=== PATIENT | female | born 1995 | race Caucasian/White ===

== ENCOUNTER 2016-11-25 19:24 | Emergency (ER) | payer BC ==
[2016-11-25 20:30] VITALS: BP 120/71
[2016-11-25] MEDS ORDERED: Ondansetron INJ* 2 MG/ML VIAL IV ONE (20:33)
[2016-11-25] MEDS ORDERED: NS 0.9% 1000 ML* 1,000 ML IV ONE ×2 (20:33→21:23)
--- NOTE | 2016-11-25 21:48 | UC ---
Abdominal Pain Female HPI - HPI Summary HPI Summary: Vomiting, diarrhea, weakness, malaise for 7 days. She hasn't had any vomiting or diarrhea for past 24 hrs, but still feels very washed out and weak. Chills but no measured fevers. Mild ST in AM. No cough or runny nose. 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 No bloody stools. Able to drink some protein shakes today. At [place], many contacts with GI bug. - History of Current Complaint Chief Complaint: UCGeneralIllness Stated Complaint: VOMITING Time Seen by Provider: 11/25/16 20:32 Hx Obtained From: Patient Hx Last Menstrual Period: 11/19/16 Onset/Duration: Gradual Onset, Lasting Weeks - 1 Timing: Constant Severity Initially: Moderate Severity Currently: Mild Location: Diffuse Character: Cramping, Dull Aggravating Factor(s): Food Alleviating Factor(s): Nothing Associated Signs and Symptoms: Positive: Dizzy, Decreased Appetite, Nausea, Vomiting - none today, Diarrhea - none today. Negative: Fever, Cough, Chest Pain, Constipation, Blood in Stool, Urinary Symptoms, Vaginal Bleeding, Vaginal Discharge - Risk Factors Ectopic Risk Factor: Negative Ovarian Torsion Risk Factor: Negative Allergies/Adverse Reactions: Allergies Allergy/AdvReac Type Severity Reaction Status Date / Time No Known Allergies Allergy Verified 11/25/16 20:30 PMH/Surg Hx/FS Hx/Imm Hx Previously Healthy: Yes Endocrine History Of: Denies: Diabetes, Thyroid Disease, Hyperthyroidism, Hypothyroidism, Dyslipidemia Cardiovascular History Of: Denies: Cardiac Disorders, Hypertension, Pacemaker/ICD, Myocardial Infarction , Congestive Heart Failure, Atrial Fibrillation, Deep Vein Thrombosis, Bleeding Disorders Respiratory History Of: Denies: COPD, Asthma, Bronchitis, Pneumonia, Pulmonary Embolism GI/ History Of: Denies: Gastroesophageal Reflux, Ulcer, Gastrointestinal Bleed, Gall Bladder Disease, Kidney Stones, Diverticulitis, Renal Disease, Urosepsis Neurological History Of: Denies: TIA, CVA, Dementia, Seizures, Migraine Psychological History Of: Denies: Anxiety, Depression, Bipolar Disorder, Schizophrenia, Post Traumatic Stress Disorder Cancer History Of: Denies: Lung Cancer, Colorectal Cancer, Breast Cancer, Prostate Cancer, Cervical Cancer Other History Of: Negative For: HIV, Hepatitis B, Hepatitis C, Anticoagulant Therapy - Surgical History Surgical History: None - Family History Known Family History: Positive: None Negative: Cardiac Disease, Hypertension, Diabetes - Social History Occupation: Student Lives: Alone - dorm Alcohol Use: Occasionally Substance Use Type: None Smoking Status (MU): Never Smoked Tobacco Review of Systems Constitutional: Chills, Fatigue Skin: Negative Eyes: Negative ENT: Negative Respiratory: Negative Cardiovascular: Negative Gastrointestinal: Vomiting, Diarrhea Genitourinary: Negative Motor: Negative Neurovascular: Negative Musculoskeletal: Negative Neurological: Negative Psychological: Negative All Other Systems Reviewed And Are Negative: Yes Physical Exam Triage Information Reviewed: Yes Appearance: Well-Appearing, No Pain Distress, Well-Nourished, Thin Vital Signs: Initial Vital Signs Temp 99.1 F 11/25/16 20:24 Pulse 90 11/25/16 20:24 Resp 16 11/25/16 20:24 BP 120/71 11/25/16 20:24 Pulse Ox 100 11/25/16 20:24 Vital Signs Reviewed: Yes Eye Exam: Normal ENT Exam: Normal ENT: Positive: Pharynx normal. Negative: Nasal drainage, Muffled/hoarse voice Neck exam: Normal Neck: Positive: Supple, Nontender Respiratory Exam: Normal Respiratory: Positive: Lungs clear, Normal breath sounds, No respiratory distress, No accessory muscle use Cardiovascular Exam: Normal Abdominal Exam: Normal Abdomen Description: Positive: No Organomegaly, Soft, Other: - very mild diffuse tenderness. Negative: Bruit, CVA Tenderness (R), CVA Tenderness (L), Distended, Guarding, Hernia @, Hepatomegaly Musculoskeletal Exam: Normal Neurological Exam: Normal Psychological Exam: Normal Skin Exam: Normal Abd Pain Female Course/Dx - Course Course Of Treatment: felt better after fluids and IV zofran - Differential Dx/Diagnosis Provider Diagnoses: gastroenteritis Discharge - Discharge Plan Condition: Stable Disposition: HOME Prescriptions: Diphenoxylat/Atrop 2.5-0.025M* [Lomotil TAB*] 1 tab PO QID PRN #10 tab MDD 4 tab PRN Reason: Diarrhea Ondansetron ODT TAB* [Zofran Odt TAB*] 4 mg PO Q8H PRN #4 tab.odt PRN Reason: Nausea Patient Education Materials: Gastroenteritis (ED) Forms: *School Release Referrals: [facility] SYBIL Vaz [Primary Care Provider] -
== END 2016-11-25 22:15 | disposition home or self-care (01) ==
LOC: UCEAST 19:24
DX: K52.9 Noninfective gastroenteritis and colitis, unspecified (principal)
CPT/HCPCS: 96360; 96361; 96374; 99212; G0463; J2405